=== PATIENT | female | born 1950 | race Caucasian/White ===

== ENCOUNTER 2017-03-06 11:11 | Emergency (ER) | payer OTHER ==
[2017-03-06 11:17] VITALS: BP 153/87; TEMP 98; BMI 35.0
[2017-03-06 11:20] VITALS: PULSE 96
--- NOTE | 2017-03-06 11:31 | PDOC ---
History of Present Illness - General Chief Complaint: Injury Stated Complaint: fall Time Seen by Provider: 03/06/17 11:19 History Source: Patient Exam Limitations: No Limitations - History of Present Illness Initial Comments: 03/06/17 11:29 s/p trip and fall sustaining left sided lower lip laceration. happened earlier today. no loc no neck or back pain. brought by EMS last tetanus. Past History - Past Medical History Allergies/Adverse Reactions: Allergies Allergy/AdvReac Type Severity Reaction Status Date / Time No Known Allergies Allergy Verified 03/06/17 11:13 Home Medications: Ambulatory Orders Amoxicillin/Potassium Clav [Augmentin 875-125 Tablet] 1 each PO BID #10 tablet 03/06/17 Metoprolol Succinate [Toprol Xl] 50 mg PO DAILY 03/06/17 COPD: No HTN: Yes - Suicide/Smoking/Psychosocial Hx Smoking History: Never smoked Hx Alcohol Use: Yes Drug/Substance Use Hx: No Substance Use Type: Alcohol *Physical Exam - Vital Signs Last Vital Signs Temp Pulse Resp BP Pulse Ox 98 F 96 H 18 153/87 100 03/06/17 11:12 03/06/17 11:12 03/06/17 11:12 03/06/17 11:12 03/06/17 11:12 *DC/Admit/Observation/Transfer Diagnosis at time of Disposition: Lip laceration - Discharge Dispostion Disposition: HOME Condition at time of disposition: Improved - Prescriptions Prescriptions: Amoxicillin/Potassium Clav [Augmentin 875-125 Tablet] 1 each PO BID #10 tablet - Referrals - Patient Instructions Printed Discharge Instructions: Laceration Repair Additional Instructions: you should use peridex mouth wash twice daily. or use mouth wash diluted with water. take augmentin 875mg twice dialy x 5 days. follow up with plastic surgery see referral information and call to schedule. return for any facial swelling, redness, or any signs of infection. sutures are absorbablle, if still present return for removal here at ER. - Post Discharge Activity
== END 2017-03-06 12:25 | disposition home or self-care (01) ==
LOC: FER 11:11
DX: S01.511A Laceration without foreign body of lip, initial encounter (principal); X58.XXXA Exposure to other specified factors, initial encounter; Y93.89 Activity, other specified; Y92.9 Unspecified place or not applicable; I10 Essential (primary) hypertension
CPT/HCPCS: 99282-25

== ENCOUNTER 2023-04-28 10:25 | Emergency (ER) | payer OTHER ==
[2023-04-28] MEDS ORDERED: ACETAMINOPHEN 325 MG TABLET (FP) PO ONE (10:34)
[2023-04-28] MEDS ORDERED: ACETAMINOPHEN 325 MG TABLET (FP) ONE (10:45)
[2023-04-28 10:56] VITALS: BP 147/86; PULSE 90; RESP 16; TEMP 97.8; BMI 33.6
== END 2023-04-28 12:22 | disposition home or self-care (01) ==
LOC: FER 10:25
PROC: 2W3DX1Z Immobilization of Left Lower Arm using Splint (ICD-10-PCS; principal; 2023-04-28)
DX: S52.532A Colles' fracture of left radius, initial encounter for closed fracture (principal); M25.532 Pain in left wrist; M25.432 Effusion, left wrist; M21.232 Flexion deformity, left wrist; W00.2XXA Other fall from one level to another due to ice and snow, initial encounter; Y93.89 Activity, other specified
CPT/HCPCS: 73110-TC-LT-FY; 73130-TC-LT-FY; 99283-25